=== PATIENT | male | born 1940 | race Caucasian/White ===

== ENCOUNTER 2020-08-04 13:37 | Outpatient (CLI) | payer MEDICARE | END 2020-08-04 13:38 | disposition home or self-care (01) | LOC: BICMRI 13:37 | PROVIDERS: ATTEND Registered Nurse | DX: M47.812 Spondylosis without myelopathy or radiculopathy, cervical region (principal); M48.02 Spinal stenosis, cervical region | CPT/HCPCS: 72141 ==